=== PATIENT | female | born 1980 | race African-American/Black ===

== ENCOUNTER 2017-04-02 10:01 | Emergency (ER) | payer OTHER, MEDICAID ==
[~2017-04-02] VITALS: Ht 167.6 cm; Wt 183.0 kg
[2017-04-02] MEDS ORDERED: DIPH25CA83 PO (10:10)
[2017-04-02] MEDS ORDERED: HYDR12.529 PO (10:13)
[2017-04-02] MEDS ORDERED: ARIP20TA2 PO (10:13)
[2017-04-02] MEDS ORDERED: LISI10TA5 PO (10:13)
[2017-04-02] MEDS ORDERED: CITA20TA11 PO (10:13)
[2017-04-02] MEDS ORDERED: FUROSEMIDE 20MG/2ML VIAL IVP ONE (10:30)
[2017-04-02 11:18] LABS: BASOPHILS % 1.3 % (0.0-2.0); EOSINOPHILS % 1.6 % (0.0-5.0); HEMOGLOBIN. 10.4 g/dL (12.0-16.0); LYMPHOCYTES % 39.2 % (20.0-50.0); MEAN CORPUSCULAR HEMOGLOBIN 22.4 pg (28.0-32.0); MEAN CORPUSCULAR VOLUME 71.1 fL (81.0-99.0); MEAN PLATELET VOLUME 8.1 fl (7.4-10.4); MONOCYTES % 6.5 % (2.0-8.0); NEUTROPHILS % 51.4 % (40.0-76.0); PLATELET 258 x1000/uL (130-400); RED BLOOD CELL COUNT 4.64 mill/uL (4.2-5.4); RED CELL DISTRIBUTION WIDTH 15.5 % (11.6-14.6)
[2017-04-02 11:23] LABS: CHLORIDE 106 mEq/L (98-107)
[2017-04-02 11:25] LABS: INR 1.1; PARTIAL THROMBOPLASTIN TIME 26.1 sec (23.4-31.0); PROTHROMBIN TIME 11.7 sec (9.4-11.6)
[2017-04-02 11:31] LABS: CARBON DIOXIDE 27 mEq/L (21-32)
[2017-04-02 11:33] LABS: HCG SCREEN NEGATIVE
[2017-04-02 11:34] LABS: CREATINE KINASE 544 IU/L (26-192); CREATINE KINASE MB FRACTION 9.5 ng/mL (0.5-3.6); TROPONIN I < 0.02 ng/mL (0.00-0.04)
[2017-04-02] MEDS ORDERED: POTASSIUM CHLORIDE 20MEQ TABLET SR PO ONE (11:45)
[2017-04-02 12:18] VITALS: BP 138/74
== END 2017-04-02 12:37 | disposition home or self-care (01) ==
LOC: ER 10:20
DX: J45.909 Unspecified asthma, uncomplicated (principal); I10 Essential (primary) hypertension; F43.10 Post-traumatic stress disorder, unspecified; R60.0 Localized edema
CPT/HCPCS: 36415; 71010; 80048; 82550; 82553; 83880; 84484; 84703; 85025; 85610; 85730; 93005; 96374; 99285; J1940

== ENCOUNTER 2021-11-25 02:44 | Emergency (ER) | payer MEDICARE, OTHER ==
[~2021-11-25] VITALS: Ht 167.6 cm; Wt 179.8 kg
[~2021-11-25 02:44] MED LIST: ARIP20TA2 PO; CITA20TA75 PO; DIPH25CA83 PO; HYDR12.529 PO; LISI10TA26 PO
[2021-11-25 02:57] VITALS: BP 168/100
[2021-11-25] MEDS ORDERED: DICYCLOMINE 10 MG/5 ML ORAL SYR PO ONE (03:30)
[2021-11-25] MEDS ORDERED: FAMOTIDINE 20MG TABLET PO ONE (03:30)
[2021-11-25] MEDS ORDERED: MAGNESIUM/ALUMINUM HYDROXIDE/SIMETHICONE 30ML UDC PO ONE (03:30)
[2021-11-25] MEDS ORDERED: VISCOUS LIDOCAINE 2% 15 ML UDC PO ONE (03:30)
[2021-11-25 03:48] LABS: BASOPHILS % 0.3 % (0.0-2.0); EOSINOPHILS % 0.4 % (0.0-5.0); HEMOGLOBIN. 12.4 g/dL (12.0-16.0); LYMPHOCYTES % 14.8 % (20.0-50.0); MEAN CORPUSCULAR HEMOGLOBIN 22.6 pg (28.0-32.0); MEAN CORPUSCULAR VOLUME 73.1 fL (81.0-99.0); MEAN PLATELET VOLUME 7.5 fl (7.4-10.4); MONOCYTES % 3.2 % (2.0-8.0); NEUTROPHILS % 81.3 % (40.0-76.0); PLATELET 308 x1000/uL (130-400); RED BLOOD CELL COUNT 5.47 mill/uL (4.2-5.4); RED CELL DISTRIBUTION WIDTH 15.1 % (11.6-14.6)
[2021-11-25 03:58] LABS: CHLORIDE 105 mEq/L (98-107)
[2021-11-25] MEDS ORDERED: PROT40 MT (04:15)
== END 2021-11-25 05:49 | disposition home or self-care (01) ==
LOC: ER 02:44
DX: K29.70 Gastritis, unspecified, without bleeding (principal); R74.8 Abnormal levels of other serum enzymes; E11.9 Type 2 diabetes mellitus without complications; I10 Essential (primary) hypertension
CPT/HCPCS: 36415; 80053; 84484; 85025; 99284